=== PATIENT | male | born 1975 | race Caucasian/White ===

== ENCOUNTER 2020-04-29 17:58 | Emergency (ER) | payer MEDICAID, OTHER ==
[~2020-04-29] VITALS: Ht 182.9 cm; Wt 135.2 kg
[~2020-04-29 17:58] MED LIST: CLON0.5T4 PO; COG1 PO; RISP1TAB1 PO
[2020-04-29 18:00] VITALS: BP 121/80
--- NOTE | 2020-04-29 18:00 | NUR ---
PT TAKEN TO BED 6 AND PLACED ON CARDIAC MONTIOR, PULSE OX AND 2L NC.
--- NOTE | 2020-04-29 18:05 | NUR ---
44 YO M BIBA FOR C/C OF ALOC. PER REPORT PT WAS FOUND UNRESPONSIVE AT HOME BY ROOMATE, UNKNOWN HOW LONG PT WAS DOWN FOR. 1MG OF NARCAN GIVEN BY FIRE ON SCENE WITH NO IMPROVEMENT, AMMONIA ADMINISTERED IN ROUTE WHICH CAUSED PT TO SLIGHTLY OPEN EYES. PERRLA 3MM WITH SLUGGISH REACION TO LIGHT. PT UNREPONSIVE TO VERBAL STIMULUS, NOT ANSWERING QUESTIONS, REMAINS NONVERBAL. LIMITED HX PER [facility] REPORT. PT PLACED ON WIRE BORDER ASSEMBLER, PULSE OX, AND 2L NC. PT SATING 94% ON RA. BED LOCKED AND IN LOWEST POSITION. SIDE RAILS X2. MED HX: PSYCH HISTORY PER REPORT (UNSPECIFIC) RX: UNOBTAINABLE Addendum: 04/29/20 at 1843 by [email or web address] 44 YO M BIBA FOR C/C OF ALOC. PER REPORT PT WAS FOUND UNRESPONSIVE AT HOME BY ROOMATE, UNKNOWN HOW LONG PT WAS DOWN FOR. 1MG OF NARCAN GIVEN BY FIRE ON SCENE WITH NO IMPROVEMENT, AMMONIA ADMINISTERED IN ROUTE WHICH CAUSED PT TO SLIGHTLY OPEN EYES. PERRLA 2MM WITH BRISK REACTION TO LIGHT. PT UNREPONSIVE TO VERBAL STIMULUS, NOT ANSWERING QUESTIONS, REMAINS NONVERBAL. LIMITED HX PER [facility] REPORT. PT PLACED ON WIRE BORDER ASSEMBLER, PULSE OX, AND 2L NC. PT SATING 94% ON RA. BED LOCKED AND IN LOWEST POSITION. SIDE RAILS X2. MED HX: PSYCH HISTORY PER REPORT (UNSPECIFIC) RX: UNOBTAINABLE
--- NOTE | 2020-04-29 18:15 | NUR ---
LAB AT BEDSIDE, CANDICE SWAB COLLECTED AND GIVEN TO LAB
--- NOTE | 2020-04-29 18:15 | NUR ---
EKG AT BEDSIDE
--- NOTE | 2020-04-29 18:30 | NUR ---
# 15 FR STRAIGHT Urinary catheter inserted utilizing sterile technique. Immediate return of 150 ml YELLOW CLEAR urine noted. Urine sample collected and sent to lab. Pt tolerated procedure WELL. UA GIVEN TO BIG DATA PLATFORM ARCHITECT
[2020-04-29 18:33] LABS: BASOPHILS % (AUTO) 0.4 % (0.0-2.0); EOSINOPHILS % (AUTO) 0.7 % (0.0-4.0); HEMATOCRIT 46.5 % (36-52); HEMOGLOBIN 15.6 g/dL (12.0-18.0); LYMPHOCYTES # (AUTO) 0.8 K/uL (2.0-11.5); LYMPHOCYTES % (AUTO) 10.5 % (20.5-51.1); MEAN CORPUSCULAR HEMOGLOBIN 29 pg (27-31); MEAN CORPUSCULAR HGB CONC 34 g/dL (33-37); MEAN CORPUSCULAR VOLUME 87.7 fL (80-94); MONOCYTES # (AUTO) 0.4 K/uL (0.8-1.0); MONOCYTES % (AUTO) 5.6 % (1.7-9.3); NEUTROPHILS # (AUTO) 5.9 K/uL (1.8-7.7); NEUTROPHILS % (AUTO) 82.8 % (42.2-75.2); PLATELET COUNT (AUTO) 265 K/uL (140-450); RED CELL DISTRIBUTION WIDTH 14.1 % (11.6-13.7); WHITE BLOOD COUNT (AUTO) 7.2 K/uL (4.8-10.8)
--- NOTE | 2020-04-29 18:36 | NUR ---
CALLED RAD TO LET THEM KNOW PT IS READY FOR CT/XRAY
--- NOTE | 2020-04-29 18:40 | NUR ---
PT TAKEN TO CT VIA HANS
[2020-04-29 18:45] LABS: ALBUMIN 3.4 g/dL (3.4-5.0); ANION GAP 13.4 (8-16); ASPARTATE AMINOTRANSFERASE 18 U/L (15-37); CARBON DIOXIDE 24.4 mmol/L (21-32); CHLORIDE 104 mmol/L (98-107); CREATININE 1.2 mg/dL (0.6-1.3); GFR ARICAN-AMERICAN 85 mL/min (>90); GLUCOSE 195 mg/dL (74-106); POTASSIUM 3.8 mmol/L (3.5-5.1); SODIUM SERUM 138 mmol/L (136-145); TOTAL BILIRUBIN 0.3 mg/dL (0.0-1.0); UREA NITROGEN, BLOOD 15 mg/dL (7-18)
[2020-04-29 18:48] LABS: ACETAMINOPHEN < 0.5 ug/ml (10-30); SALICYLATE < 2.8 mg/dL (2.8-20.0)
--- NOTE | 2020-04-29 19:00 | NUR ---
PT RETURNED FROM CT, A&O X4 AT THIS TIME. PT DENIES SI AND STATES HE TOOK RISPERIDONE, BENZTROPINE, KLONOPIN OF UNKNOWN MG
--- NOTE | 2020-04-29 19:11 | NUR ---
REPORT GIVEN TO IVANA TORREZ. TRANSFER OF CARE AT THIS TIME.
--- NOTE | 2020-04-29 19:12 | NUR ---
REPORT RECEIVED FROM IVANA STRICKLAND FOR CONTINUATION OF CARE.
[2020-04-29] MEDS ORDERED: NACL 0.9% 1,000 ML IV ONE ×2 (19:25→19:55)
[2020-04-29 19:32] LABS: APPEARANCE,URINE CLEAR (CLEAR); BILIRUBIN,URINE NEGATIVE (NEGATIVE); BLOOD, URINE NEGATIVE (NEGATIVE); COLOR,URINE YELLOW (YELLOW); LEUKOCYTE ESTERASE ,URINE NEGATIVE (NEGATIVE); NITRITE, URINE NEGATIVE (NEGATIVE); UGLUCOSE NEGATIVE (NEGATIVE)
[2020-04-29 19:53] LABS: BARBITURATE, URINE NEGATIVE ng/ml (NEG <=200); BENZODIAZEPINE, URINE NEGATIVE ng/mL (NEG <=200); CANNABINOID, URINE NEGATIVE ng/mL (NEG <=50); COCAINE, URINE NEGATIVE ng/mL (NEG <=300); OPIATE, URINE NEGATIVE ng/mL (NEG <=2000); PHENCYCLIDINE SCREEN,URINE NEGATIVE ng/mL (NEG <=25)
--- NOTE | 2020-04-29 20:04 | NUR ---
CALLED SECURITY TO SEE IF WE HAVE ANY SHIRTS FOR PT AT THIS TIME.
--- NOTE | 2020-04-29 21:24 | NUR ---
SPOKE W/ PT FATHER , HE WILL PLANT TECHNICAL SPECIALIST PT FROM ER LOBBY.
--- NOTE | 2020-04-29 21:25 | NUR ---
IV removed, catheter intact and site benign. Applied folded 4x4 gauze and tape to stop bleeding.
[2020-04-29 21:31] VITALS: BP 143/94
--- NOTE | 2020-04-29 21:31 | NUR ---
Patient discharged with v/s stable. Written and verbal after care instructions given and explained. Patient verbalized understanding. Ambulatory with steady gait. All questions addressed prior to discharge. Advised to follow up with PMD.
== END 2020-04-29 21:31 | disposition home or self-care (01) ==
LOC: MED 17:58
DX: R41.0 Disorientation, unspecified (principal); F17.210 Nicotine dependence, cigarettes, uncomplicated; F20.9 Schizophrenia, unspecified; Z71.6 Tobacco abuse counseling; Z79.899 Other long term (current) drug therapy; Z20.828 Contact with and (suspected) exposure to other viral communicable diseases
CPT/HCPCS: 36415; 70450; 71045; 80053; 80305; 81003; 84484; 85025; 87426; 93005; 96360; 99285; G0480; G0482; J7030

== ENCOUNTER 2020-10-15 16:34 | Observation (INO) | payer OTHER, SELFPAY ==
[~2020-10-15] VITALS: Ht 188 cm; Wt 158.8 kg
[2020-10-15 16:40] VITALS: BP 116/86
[2020-10-15 17:21] LABS: BASOPHILS % (AUTO) 0.3 % (0.0-2.0); EOSINOPHILS % (AUTO) 0.3 % (0.0-4.0); HEMATOCRIT 46.3 % (36-52); HEMOGLOBIN 15.5 g/dL (12.0-18.0); LYMPHOCYTES # (AUTO) 1.4 K/uL (2.0-11.5); LYMPHOCYTES % (AUTO) 17.6 % (20.5-51.1); MEAN CORPUSCULAR HEMOGLOBIN 29 pg (27-31); MEAN CORPUSCULAR HGB CONC 34 g/dL (33-37); MEAN CORPUSCULAR VOLUME 87.8 fL (80-94); MONOCYTES # (AUTO) 0.3 K/uL (0.8-1.0); MONOCYTES % (AUTO) 4.4 % (1.7-9.3); NEUTROPHILS # (AUTO) 6.1 K/uL (1.8-7.7); NEUTROPHILS % (AUTO) 77.4 % (42.2-75.2); PLATELET COUNT (AUTO) 280 K/uL (140-450); RED BLOOD CELL COUNT(AUTO) 5.27 MIL/uL (4.20-6.10); RED CELL DISTRIBUTION WIDTH 13.8 % (11.6-13.7); WHITE BLOOD COUNT (AUTO) 7.8 K/uL (4.8-10.8)
[2020-10-15] MEDS ORDERED: HALOPERIDOL IM 5 MG/ML VIAL IM ONE (17:25)
[2020-10-15 17:37] LABS: ALBUMIN 3.6 g/dL (3.4-5.0); ASPARTATE AMINOTRANSFERASE 15 U/L (15-37); BILIRUBIN,DIRECT 0.1 mg/dL (0.0-0.3); TOTAL BILIRUBIN 0.2 mg/dL (0.0-1.0)
[2020-10-15 17:39] LABS: ACETAMINOPHEN < 0.5 ug/ml (10-30); SALICYLATE < 2.8 mg/dL (2.8-20.0)
[2020-10-15] MEDS ORDERED: LORazepam 2 MG/ML VIAL ONE (17:39)
[2020-10-15] MEDS ORDERED: LORazepam 2 MG/ML VIAL IVP ONE (17:40)
[2020-10-15 17:48] LABS: ANION GAP 14.6 (8-16); CARBON DIOXIDE 23.3 mmol/L (21-32); POTASSIUM 3.9 mmol/L (3.5-5.1)
[2020-10-15] MEDS ORDERED: ONDANSETRON 4 MG/2 ML VIAL IVP PRN (18:35)
[2020-10-15] MEDS ORDERED: ACETAMINOPHEN 325 MG TAB PO PRN (18:35)
[2020-10-15] MEDS ORDERED: LORazepam 2 MG/ML VIAL IVP PRN (18:35)
[2020-10-15 19:27] LABS: APPEARANCE,URINE CLEAR (CLEAR); BILIRUBIN,URINE NEGATIVE (NEGATIVE); BLOOD, URINE NEGATIVE (NEGATIVE); COLOR,URINE YELLOW (YELLOW); LEUKOCYTE ESTERASE ,URINE NEGATIVE (NEGATIVE); NITRITE, URINE NEGATIVE (NEGATIVE); PH,URINE 5.5 (5.0-9.0); UGLUCOSE NEGATIVE (NEGATIVE)
[2020-10-15 19:55] LABS: BARBITURATE, URINE NEGATIVE ng/ml (NEG <=200); BENZODIAZEPINE, URINE NEGATIVE ng/mL (NEG <=200); CANNABINOID, URINE NEGATIVE ng/mL (NEG <=50); COCAINE, URINE NEGATIVE ng/mL (NEG <=300); OPIATE, URINE NEGATIVE ng/mL (NEG <=2000); PHENCYCLIDINE SCREEN,URINE NEGATIVE ng/mL (NEG <=25)
[2020-10-15 21:20] VITALS: BP 113/76
[2020-10-16 04:00] VITALS: BP 113/81
[2020-10-16 06:36] LABS: BASOPHILS % (AUTO) 0.3 % (0.0-2.0); EOSINOPHILS # (AUTO) 0.1 K/uL (0-0.4); EOSINOPHILS % (AUTO) 1.1 % (0.0-4.0); HEMOGLOBIN 15.2 g/dL (12.0-18.0); LYMPHOCYTES # (AUTO) 2.5 K/uL (2.0-11.5); LYMPHOCYTES % (AUTO) 39.3 % (20.5-51.1); MEAN CORPUSCULAR HEMOGLOBIN 29 pg (27-31); MEAN CORPUSCULAR HGB CONC 33 g/dL (33-37); MEAN CORPUSCULAR VOLUME 88.8 fL (80-94); MONOCYTES # (AUTO) 0.5 K/uL (0.8-1.0); MONOCYTES % (AUTO) 7.5 % (1.7-9.3); NEUTROPHILS # (AUTO) 3.3 K/uL (1.8-7.7); NEUTROPHILS % (AUTO) 51.8 % (42.2-75.2); PLATELET COUNT (AUTO) 254 K/uL (140-450); RED BLOOD CELL COUNT(AUTO) 5.18 MIL/uL (4.20-6.10); RED CELL DISTRIBUTION WIDTH 13.9 % (11.6-13.7); WHITE BLOOD COUNT (AUTO) 6.4 K/uL (4.8-10.8)
[2020-10-16 06:53] LABS: ALBUMIN 3.3 g/dL (3.4-5.0); ANION GAP 10.5 (8-16); CARBON DIOXIDE 26.7 mmol/L (21-32); MAGNESIUM 2.1 mg/dL (1.8-2.4); PHOSPHORUS 3.3 mg/dL (2.5-4.9); POTASSIUM 4.2 mmol/L (3.5-5.1); TOTAL BILIRUBIN 0.2 mg/dL (0.0-1.0)
[2020-10-16 08:00] VITALS: BP 125/79
[2020-10-16] MEDS ORDERED: ENOXAPARIN 40 MG/0.4 ML SYR SUBQ SCH (09:00)
[2020-10-16 14:33] VITALS: BP 125/79
[2020-10-16] MEDS ORDERED: risperiDONE 1 MG TAB PO SCH (21:00)
[2020-10-16] MEDS ORDERED: BENZTROPINE 1 MG TAB PO SCH (21:00)
[2020-10-16] MEDS ORDERED: clonazePAM 0.5 MG TAB PO SCH (21:00)
== END 2020-10-16 15:30 | disposition home or self-care (01) ==
LOC: MED 16:34 → MTU 18:56
PROVIDERS: ADMIT Hospitalist; ATTEND Hospitalist
DX: F23 Brief psychotic disorder (principal); Z20.822 Contact with and (suspected) exposure to COVID-19; Z79.899 Other long term (current) drug therapy
CPT/HCPCS: 36415; 70450; 71045; 80048; 80053; 80076; 80305; 81003; 82140; 83735; 83930; 84100; 84484; 85025; 87040; 87081; 87086; 87426; 96372; 96374; 99291; G0378; G0482; J1630; J1650; J2060; G0480

== ENCOUNTER 2021-03-10 19:19 | Observation (INO) | payer OTHER, SELFPAY ==
[~2021-03-10] VITALS: Ht 185.4 cm; Wt 106.6 kg
[2021-03-10 19:28] VITALS: BP 145/87
[2021-03-10] MEDS ORDERED: HALOPERIDOL IM 5 MG/ML VIAL IM ONE (20:05)
--- NOTE | 2021-03-10 20:11 | NUR ---
BIBA INTO ED BED 3, ER MD AT BEDSIDE. PATIENT IS NON COOPERATIVE VERBALLY BUT UNDERSTANDS COMMANDS. PATIENT TAKES OFF PULSE OX AND CARDIAC MONIOTR AND DOESNT ALLOW FOR PROPER VITALS PER EMS PATIENT IS CONFUSED AND FATHER CALLED EMS. PMHX SCHIZO, UNSURE IF COMPLIANT WITH MEDICATIONS. PER FATHER PATIENT GETS CIGARRETES FROM A MAN IN THE [facility] AND IS UNSURE IF THEY ARE DRUGS. CURRENTLY NON COOPERATIVE WITH ASSESSMENT. LAB AT BEDSIDE ABLE TO GET BLOOD
[2021-03-10 20:18] LABS: BASOPHILS % (AUTO) 0.2 % (0.0-2.0); EOSINOPHILS % (AUTO) 0.3 % (0.0-4.0); HEMATOCRIT 47.9 % (36-52); LYMPHOCYTES # (AUTO) 2.3 K/uL (2.0-11.5); MEAN CORPUSCULAR HEMOGLOBIN 30 pg (27-31); MEAN CORPUSCULAR HGB CONC 33 g/dL (33-37); MEAN CORPUSCULAR VOLUME 88.4 fL (80-94); MONOCYTES # (AUTO) 0.5 K/uL (0.8-1.0); MONOCYTES % (AUTO) 5.2 % (1.7-9.3); NEUTROPHILS # (AUTO) 6.6 K/uL (1.8-7.7); NEUTROPHILS % (AUTO) 70.3 % (42.2-75.2); PLATELET COUNT (AUTO) 276 K/uL (140-450); RED BLOOD CELL COUNT(AUTO) 5.42 MIL/uL (4.20-6.10); RED CELL DISTRIBUTION WIDTH 14.5 % (11.6-13.7); WHITE BLOOD COUNT (AUTO) 9.4 K/uL (4.8-10.8)
[2021-03-10 20:29] LABS: ALBUMIN 3.5 g/dL (3.4-5.0); ASPARTATE AMINOTRANSFERASE 17 U/L (15-37); CARBON DIOXIDE 23.6 mmol/L (21-32); CHLORIDE 105 mmol/L (98-107); GFR ARICAN-AMERICAN 104 mL/min (>90); GLUCOSE 118 mg/dL (74-106); POTASSIUM 3.6 mmol/L (3.5-5.1); SALICYLATE 3.2 mg/dL (2.8-20.0); SODIUM SERUM 137 mmol/L (136-145); TOTAL BILIRUBIN 0.2 mg/dL (0.0-1.0); UREA NITROGEN, BLOOD 20 mg/dL (7-18)
[2021-03-10 20:30] LABS: ACETAMINOPHEN < 0.5 ug/ml (10-30)
--- NOTE | 2021-03-10 21:42 | NUR ---
PATIENT IS ALERT AND ORIENTED AT THIS TIME. AT TIME OF CT HE HAD CONVERSATION WITH RADIOLOGY STAFF AND IS NOT ALTERED. CHOOSING NOT TO TALK TO ER MD OR NURSE BUT OTHERWISE COOPERATIVE
[2021-03-10 21:47] LABS: APPEARANCE,URINE CLEAR (CLEAR); BILIRUBIN,URINE NEGATIVE (NEGATIVE); BLOOD, URINE NEGATIVE (NEGATIVE); COLOR,URINE YELLOW (YELLOW); LEUKOCYTE ESTERASE ,URINE NEGATIVE (NEGATIVE); NITRITE, URINE NEGATIVE (NEGATIVE); UGLUCOSE NEGATIVE (NEGATIVE)
[2021-03-10 22:01] LABS: BARBITURATE, URINE NEGATIVE ng/ml (NEG <=200); BENZODIAZEPINE, URINE NEGATIVE ng/mL (NEG <=200); CANNABINOID, URINE NEGATIVE ng/mL (NEG <=50); COCAINE, URINE NEGATIVE ng/mL (NEG <=300); OPIATE, URINE NEGATIVE ng/mL (NEG <=2000); PHENCYCLIDINE SCREEN,URINE NEGATIVE ng/mL (NEG <=25)
--- NOTE | 2021-03-11 00:01 | NUR ---
0002- [facility] CALLED FOR PSYCH CONSULT AND GIVEN APPROXIMATE ETA OF JOCKEY'S AGENT
--- NOTE | 2021-03-11 00:05 | NUR ---
0005 - FAX SENT TO [facility] FOR PT FACESHEET
[2021-03-11] MEDS ORDERED: HALOPERIDOL IM 5 MG/ML VIAL IM SCH (01:30)
--- NOTE | 2021-03-11 01:31 | NUR ---
pATIENT BECAME INCREASINGLY UNCOOPERATIVE AND GETTING OUT OF BED AND CRAWLING ON THE FLOOR . ER MD PLACED ORDER FOR RESTRAINTS AND 4 POINT RESTRAINTS INITIATED. PATIENT ON COUNTER WAITER FOR MONITORING
[2021-03-11] MEDS ORDERED: HALOPERIDOL IM 5 MG/ML VIAL ONE (01:48)
[2021-03-11] MEDS ORDERED: HALOPERIDOL IM 5 MG/ML VIAL IM ONE (01:50)
[2021-03-11] MEDS ORDERED: MIDAZOLAM 5 MG/1 ML VIAL ONE (04:09)
[2021-03-11] MEDS ORDERED: MIDAZOLAM 5 MG/5 ML VIAL IM ONE (04:10)
--- NOTE | 2021-03-11 04:10 | NUR ---
PATIENT AWAKE AT THIS TIME AND SCREAMING AND SPITTING WITH RESTRAINTS IN PLACE.
--- NOTE | 2021-03-11 04:59 | NUR ---
PATIENT IS AWAKE AND MANAGED TO UNDO UPPER EXTREMITY RESTRAINTS AT THIS TIME.
--- NOTE | 2021-03-11 05:05 | NUR ---
PATIENT ALERT AND ORIENTED AT THIS TIME. REMEMBERS MAKING SOUNDS AND NOISE BUT DOES NOT REMEMBER CRAWLING ON THE FLOOR OR SCREAMING. AT THIS TIME REMAINS WITH LOWER EXTREMITIES RESTRAINED AND UPPER EXTREMTIES FREED
--- NOTE | 2021-03-11 06:53 | NUR ---
ROSINAID EXAMS WALKED TO LAB AT THIS TIME
--- NOTE | 2021-03-11 07:02 | NUR ---
pt moved to er bed 6
--- NOTE | 2021-03-11 07:12 | NUR ---
RECEIVED REPORT FROM IVANA QUIÑONES TRAVEL NURSE. TRANSFER OF CARE AT THIS TIME.
--- NOTE | 2021-03-11 07:14 | NUR ---
PT SLEEPING ON RIGHT SIDE, NO RESTRAINTS, HOB FLAT, WILL CONTINUE TO MONITOR.
--- NOTE | 2021-03-11 09:13 | NUR ---
PT PROVIDED WITH BREAKFAST TRAY, HOB ELEVATED. WILL CONTINUE TO MONITOR.
--- NOTE | 2021-03-11 09:52 | NUR ---
PT BECOMING INCREASINGLY AGITATED, MAKING GROWLING NOISES, PT CAUGHT PLACING HEAD BETWEEN IV POLE AND BED FRAME. MD MADE AWARE, GEODON 20MG VERBAL ORDER TO BE GIVEN IM. PER MD ORDERS EQUIPMENT TO BE REMOVED FROM PT ROOM FOR SAFETY. WILL CONTINUE TO MONITOR.
[2021-03-11] MEDS ORDERED: ZIPRASIDONE MESYLATE 20 MG/ML VIAL IM ONE ×2 (10:07→10:10)
[2021-03-11] MEDS ORDERED: WATER STERILE 10 ML MC ONE (10:08)
--- NOTE | 2021-03-11 10:34 | NUR ---
PT ADMITTED BY DR. GILLESPIE, MED SURG HOLD IN ER BED 6.
[2021-03-11] MEDS ORDERED: POTASSIUM CHLORIDE 10 MEQ TABER PO PRN (10:35)
[2021-03-11] MEDS ORDERED: ZOLPIDEM 5 MG TAB PO PRN (10:35)
[2021-03-11] MEDS ORDERED: ONDANSETRON 4 MG/2 ML VIAL IVP PRN (10:35)
[2021-03-11] MEDS ORDERED: KCL 20 MEQ/WATER INJ PREMIX 200 ML IV PRN (10:35)
[2021-03-11] MEDS ORDERED: ACETAMINOPHEN 325 MG TAB PO PRN (10:35)
[2021-03-11] MEDS ORDERED: MAG SULF 2000 MG/WATER PREMIX 50 ML IV PRN (10:35)
[2021-03-11] MEDS ORDERED: MAGNESIUM OXIDE 400 MG TAB PO PRN (10:35)
--- NOTE | 2021-03-11 11:02 | NUR ---
CALLED MANAGER SALES AND MARKETING JOWLE FOR MED/SURG ADMIT, STS " WILL CALL BACK WHEN I HAS A BED ' NO ETA GIVEN.
--- NOTE | 2021-03-11 12:07 | NUR ---
PT UP FROM BED, CAUGHT RUNNING TO ER BED 9, ATTEMPTING TO ATTACK EMPLOYEE. BOWLING BALL GRADER AND MARKER PULLED FROM WALL AND SLAMMED ON FLOOR. MD MADE AWARE, 4 POINT RESTRAINTS ORDERED. PT EXTREMELY AGITATED, GROWLING, SECURITY PAGED. PT PLACED IN 4 POINT RESTRAINTS. PT DOES NOT COMPREHENDS CRITERIA FOR RELEASE, DOCUMENTATION IN CHART.
[2021-03-11] MEDS ORDERED: LORazepam 2 MG/ML VIAL IVP ONE (12:45)
[2021-03-11] MEDS ORDERED: HALOPERIDOL IM 5 MG/ML VIAL IM PRN (12:55)
[2021-03-11] MEDS ORDERED: LORazepam 2 MG/ML VIAL IVP PRN (12:55)
[2021-03-11] MEDS ORDERED: LORazepam 2 MG/ML VIAL IM ONE (13:15)
--- NOTE | 2021-03-11 14:20 | NUR ---
PT RESTING, ASKING FOR WATER, MD MADE AWARE PROVIDED. VSS, WILL CONTINUE TO MONITOR.
--- NOTE | 2021-03-11 16:00 | NUR ---
PT REMOVED FROM 4 POINT RESTRAINTS. PT COMPREHENDS CRITERIA FOR RELEASE, DOCUMENTATION IN CHART.
--- NOTE | 2021-03-11 16:15 | NUR ---
PT RESTING SUPINE, VSS, CALM AND COOPERATIVE. WILL CONTINUE TO MONITOR.
--- NOTE | 2021-03-11 18:35 | NUR ---
PT USING URINAL AT BEDSIDE, EMPTIED 800CC OF CARMINE COLOR URINE.
--- NOTE | 2021-03-11 18:51 | NUR ---
PT ON KNEES IN BED, FIXING SHEETS, CALM AND COOPERATIVE. WILL CONTINUE TO MONITOR.
--- NOTE | 2021-03-11 19:29 | NUR ---
GAVE REPORT TO TRAVEL QUIÑONES RN. TRANSFER OF CARE AT THIS TIME.
--- NOTE | 2021-03-11 21:25 | NUR ---
RECEIVED REPORT FROM ER NURSE; PT TRANSPORTED VIA GURNEY. ABLE TO SLIDE OVER TO BED, FOLLOWING SIMPLE COMMANDS. UNABLE TO RESPOND TO ASSESSMENT. PT DOES NOT WANT TO HURT ONESELF. DENIES ACUTE PAIN, CP/SOB. ON ROOM AIR 98%, AFEBRILE. ABD SOFT NON DISTENDED, URINAL @ BEDSIDE. IV L HAND 20 G PATENT INTACT. 1:1 SITTER PER MD ORDER. SKIN INTACT BED LOCKED IN LOWEST POSITION. SAFETY PRECAUTIONS IN PLACE.
--- NOTE | 2021-03-11 22:54 | NUR ---
EYES CLOSED; AROUSABLE. NO ACUTE DISTRESS NOTED.
--- NOTE | 2021-03-12 00:30 | NUR ---
PT HAS EYES CLOSED; AROUSABLE. NO S/S OF DISTRESS NOTED
--- NOTE | 2021-03-12 03:00 | NUR ---
PT AWAKE SITTING UP BED, REQUESTING SANDWICH/DRINK. NO OTHER S/S OF DISTRESS NOTED.
[2021-03-12 04:00] VITALS: BP 145/89
--- NOTE | 2021-03-12 05:57 | NUR ---
PT ASLEEP; AROUSABLE. NO ACUTE DISTRESS NOTED.
[2021-03-12 06:41] LABS: BASOPHILS % (AUTO) 0.2 % (0.0-2.0); EOSINOPHILS # (AUTO) 0.1 K/uL (0-0.4); EOSINOPHILS % (AUTO) 0.9 % (0.0-4.0); HEMATOCRIT 49.6 % (36-52); HEMOGLOBIN 16.4 g/dL (12.0-18.0); LYMPHOCYTES # (AUTO) 2.6 K/uL (2.0-11.5); LYMPHOCYTES % (AUTO) 32.5 % (20.5-51.1); MEAN CORPUSCULAR HEMOGLOBIN 29 pg (27-31); MEAN CORPUSCULAR HGB CONC 33 g/dL (33-37); MEAN CORPUSCULAR VOLUME 88.9 fL (80-94); MONOCYTES # (AUTO) 0.5 K/uL (0.8-1.0); MONOCYTES % (AUTO) 6.9 % (1.7-9.3); NEUTROPHILS # (AUTO) 4.7 K/uL (1.8-7.7); NEUTROPHILS % (AUTO) 59.5 % (42.2-75.2); PLATELET COUNT (AUTO) 267 K/uL (140-450); RED BLOOD CELL COUNT(AUTO) 5.57 MIL/uL (4.20-6.10); RED CELL DISTRIBUTION WIDTH 14.6 % (11.6-13.7); WHITE BLOOD COUNT (AUTO) 7.8 K/uL (4.8-10.8)
[2021-03-12 06:54] LABS: CHOL/HDL RATIO 4.5 (1-4.5)
[2021-03-12 06:55] LABS: ANION GAP 16.4 (8-16); CARBON DIOXIDE 24.2 mmol/L (21-32); CREATININE 1.1 mg/dL (0.6-1.3); POTASSIUM 3.6 mmol/L (3.5-5.1)
--- NOTE | 2021-03-12 07:19 | NUR ---
REPORT GIVEN TO DAY SHIFT FOR CONTINUITY OF CARE.
--- NOTE | 2021-03-12 07:20 | NUR ---
RECEIVED REPORT FROM CHECK AND TRANSFER BEADER. PT AWAKE IN BED. AOX4, ABLE TO MAKE NEEDS KNOWN. WITH EPISODES OF RESTLESSNESS AND PACING AROUND THE ROOM. NO C/O PAIN, NO RESPIRATORY DISTRESS ON ROOM AIR. AMBULATORY, BOWEL AND BLADDER CONTINENT. WITH IV 20G ON LH, ON SALINE LOCK. SKIN INTACT. COVID PCR PENDING. ISOLATION PRECAUTION OBSERVED. CALL LIGHT WITHIN REACH. WILL CONTINUE TO MONITOR
[2021-03-12 08:00] VITALS: BP 145/84
--- NOTE | 2021-03-12 08:30 | NUR ---
may continue home meds per Dr Gallardo
--- NOTE | 2021-03-12 09:05 | NUR ---
DUE PO MEDS GIVEN TOLERATED WELL
[2021-03-12] MEDS: BENZTROPINE 1 MG TAB PO SCH ×2 (09:09→21:51)
[2021-03-12] MEDS: clonazePAM 0.5 MG TAB PO SCH ×2 (09:09→21:50)
[2021-03-12] MEDS: risperiDONE 1 MG TAB PO SCH ×2 (09:09→21:49)
[2021-03-12] MEDS: ENOXAPARIN 40 MG/0.4 ML SYR SUBQ SCH (09:10)
--- NOTE | 2021-03-12 12:14 | NUR ---
TRANSFERRED PT TO TELE ROOM 109A. GAVE REPORT TO FRANKIE HEATH
--- NOTE | 2021-03-12 12:15 | NUR ---
RECEIVED PATIENT FROM IVANA SKAGGS FOR CONTINUITY OF CARE. PT IS STABLE. NO DISTRESS NOTED. WILL CONTINUE TO MONITOR.
--- NOTE | 2021-03-12 15:09 | NUR ---
DR. GILLESPIE AT PATIENT'S BEDSIDE DISCUSSING PLAN OF CARE.
--- NOTE | 2021-03-12 17:15 | NUR ---
PATIENT REMOVED IV CATH. INSISTED PLACING A NEW IV AND PATIENT REFUSED. NOTIFIED MD AND IS AWARE OF THE SITUATION.
--- NOTE | 2021-03-12 19:23 | NUR ---
ENDORSED TO MANAGER INSTRUMENTATION NURSE FOR CONTINUITY OF CARE. PT IS STABLE.
[2021-03-12 20:00] VITALS: BP 147/82
--- NOTE | 2021-03-12 23:57 | NUR ---
Assumed care. A/O x 4. Denies pain at this time. In no acute distress respiratory or otherwise. Psych consult Dr Munoz did talk to him. She willbe making her recommendations. Will continue to monitor.
[2021-03-13 04:00] VITALS: BP 114/81
[2021-03-13 06:54] LABS: BASOPHILS % (AUTO) 0.2 % (0.0-2.0); EOSINOPHILS # (AUTO) 0.1 K/uL (0-0.4); EOSINOPHILS % (AUTO) 1.4 % (0.0-4.0); HEMATOCRIT 43.5 % (36-52); HEMOGLOBIN 14.5 g/dL (12.0-18.0); LYMPHOCYTES # (AUTO) 2.5 K/uL (2.0-11.5); LYMPHOCYTES % (AUTO) 42.6 % (20.5-51.1); MEAN CORPUSCULAR HEMOGLOBIN 30 pg (27-31); MEAN CORPUSCULAR HGB CONC 33 g/dL (33-37); MEAN CORPUSCULAR VOLUME 88.8 fL (80-94); MONOCYTES # (AUTO) 0.5 K/uL (0.8-1.0); MONOCYTES % (AUTO) 8.7 % (1.7-9.3); NEUTROPHILS # (AUTO) 2.8 K/uL (1.8-7.7); NEUTROPHILS % (AUTO) 47.1 % (42.2-75.2); PLATELET COUNT (AUTO) 251 K/uL (140-450); RED CELL DISTRIBUTION WIDTH 14.2 % (11.6-13.7); WHITE BLOOD COUNT (AUTO) 5.9 K/uL (4.8-10.8)
[2021-03-13 07:30] LABS: ANION GAP 15.9 (8-16); CARBON DIOXIDE 23.2 mmol/L (21-32); POTASSIUM 4.1 mmol/L (3.5-5.1)
--- NOTE | 2021-03-13 08:02 | NUR ---
RECEIVED REPORT FROM AIR PUMPER. PT AWAKE IN BED. AOX4, ABLE TO MAKE NEEDS KNOWN. WITH EPISODES OF RESTLESSNESS AND PACING AROUND THE ROOM. NO C/O PAIN, NO RESPIRATORY DISTRESS ON ROOM AIR. AMBULATORY, BOWEL AND BLADDER CONTINENT. PATIENT HAS NO IV, REFUSE TO INSERT ONE. SKIN INTACT. COVID PCR PENDING. ISOLATION PRECAUTION OBSERVED. CALL LIGHT WITHIN REACH. ALL SAFETY MEASURES ON PLACE, POC DISCUSSED.
--- NOTE | 2021-03-13 08:05 | NUR ---
Has remained calm the whole night. Dr. Munoz did talk to him. He is looking forward to being discharged home. Care has been endorsed to Gregorio HEATH.
[2021-03-13] MEDS: risperiDONE 1 MG TAB PO SCH (08:44)
[2021-03-13] MEDS: BENZTROPINE 1 MG TAB PO SCH (08:46)
[2021-03-13] MEDS: ENOXAPARIN 40 MG/0.4 ML SYR SUBQ SCH (08:46)
[2021-03-13] MEDS: clonazePAM 0.5 MG TAB PO SCH (08:46)
--- NOTE | 2021-03-13 08:58 | NUR ---
PT ON BED NO COMPLAINS. GOT MORNING MEDICATION TOLERATED WELL, EATING BREAKFAST, ALL SAFETY MEASURES ON PLACE CALS LIGHT WITHIN REACH
--- NOTE | 2021-03-13 09:29 | NUR ---
PATIENT HAS BEEN SCREENED AND CATEGORIZED LOW NUTRITION RISK. PATIENT WILL BE SEEN WITHIN 7 DAYS OF ADMISSION. 03/18/[address]
--- NOTE | 2021-03-13 11:04 | NUR ---
PT ON BED NO COMPLAINS. PLAN TO BE DISCHARGED TODAY, ALL SAFETY MEASURES ON PLACE CALS LIGHT WITHIN REACH
[2021-03-13 12:00] VITALS: BP 108/85
--- NOTE | 2021-03-13 13:19 | NUR ---
PT ON BED NO COMPLAINS. PLAN TO BE DISCHARGED TODAY, ALL SAFETY MEASURES ON PLACE CALLS LIGHT WITHIN REACH
--- NOTE | 2021-03-13 14:46 | NUR ---
PT ON BED NO COMPLAINS. P ALL SAFETY MEASURES ON PLACE CALLS LIGHT WITHIN REACH
--- NOTE | 2021-03-13 16:30 | NUR ---
PT ON BED NO COMPLAINS. ALL SAFETY MEASURES ON PLACE CALLS LIGHT WITHIN REACH
[2021-03-13 16:43] VITALS: BP 115/81
--- NOTE | 2021-03-13 17:06 | NUR ---
DC PLANNING PATIENT IS A 45 YEAR OLD MALE ADMITTED IN THE ED ON 03/11/2021. DUE ALTERATION ON CONSCIOUSNESS. PATIENT HAS HX OF MENTAL HEALTH ISSUES. SCOURING MACHINE TENDER AND CASE MANGER MET WITH PATIENT AT BEDSIDE TO DISCUSS AND GATHER HIS COLLATERAL INFORMATION. PER PATIENT HE LIVES IN AN APARTMENT IN [place] WITH HIS FATHER. PATIENT REPORTED NOT HAVING ADVANCE DIRECTIVES AND WAS NOT INTERESTED ON GETTING INFORMATION PACKET PROVIDED BY AT THE TIME OF THE VISIT. PATIENT REPORTED NOT HAVING OR NEEDING ANY DME AT HOME. PATIENT REPORTED BEEN INDEPENDENT AND HAVING NO ISSUES GETTING OR TAKING HIS MEDICATIONS FROM THE PHARMACY NEAR HIS HOME. PATIENT STATED THAT HIS PRIMARY DOCTOR IS AT [facility]. AND HE IS ALSO IS GETTING SERVICES AT [facility] IN [place]. PATIENT REPORTED THAT HE WILL BE CALLING TO MAKE AN APPOINTMENT WITH HIS PSYCHIATRIST SOON HE IS DISCHARGE FROM [facility]. PATIENT REPORTED THAT HIS FATHER WILL PICK HIM UP AT AND TAKE HIM HOME AFTER DC FROM [facility].
[2021-03-13 17:51] VITALS: BP 115/81
--- NOTE | 2021-03-13 18:30 | NUR ---
PT FATHER WAS CALLED AND COME TO RUNNING INSTRUCTOR THE PT, PT RECEIVE DISCHARGE PACKET AND DISCHARGE EDUCATION, PT HAS ALL BELONGING, ID BAND REMOVED, PT HAS NO IV, PT STABLE, WALKED TO THE FRONT [facility]. Addendum: 03/13/21 at 2000 by Magnus Adair RN RN SECURITY BRING PT BELONGING, BELONGINGS GIVEN TO THE PT
== END 2021-03-13 18:50 | disposition home or self-care (01) ==
LOC: MED 19:19 → MTU 03-11 10:34 → MIC 03-11 17:41 → MTU 03-12 11:40
PROVIDERS: ADMIT Internal Medicine; ATTEND Internal Medicine
DX: G93.40 Encephalopathy, unspecified (principal); Z20.822 Contact with and (suspected) exposure to COVID-19; F20.9 Schizophrenia, unspecified; I10 Essential (primary) hypertension; Z79.899 Other long term (current) drug therapy
CPT/HCPCS: 36415; 70450; 80048; 80053; 80061; 80305; 81003; 83036; 85025; 87081; 87426; 93005; 96372; 99285; G0378; G0480; G0482; J1630; J1650; J2060; J2250; J3486; U0003

== ENCOUNTER 2022-08-24 21:42 | Emergency (ER) | payer OTHER ==
[~2022-08-24] VITALS: Ht 188 cm; Wt 127.0 kg
[~2022-08-24 21:42] MED LIST changes: +BENZ1TAB24 PO; -COG1 PO
[2022-08-24 22:05] VITALS: BP 152/98
--- NOTE | 2022-08-24 22:12 | NUR ---
PT [facility] ER BED 7
--- NOTE | 2022-08-24 22:18 | NUR ---
LUIS ANGULO ASSESSING PT.
--- NOTE | 2022-08-24 22:20 | NUR ---
46 YO M BIBA FROM HOME WITH C/C OF ALTERED MENTAL STATUS X 45MINS-1HR. PER ROOMATE LAST KNOWN WELL WAS ABOUT 7-8PM. PER EMS PT WAS FOUND ON FLOOR SIDE-LYING NAKED IN A "CATATONIC STATE". PT WILL NOT ANSWER QUESTIONS, HAS A BLANK STARE. EMS STATES IF PT IS GIVEN INSTURCTION HE WILL NOT FOLLOW, BUT IF MOVEMENTS ARE INITAITED SUCH RAISE YOUR ARM, PT KEEPS IT UP. PER EMS PT'S ROOM WAS COVERED IN TRASH AND MANY COCKAROACHES AROUND. HX:SCHIZOPHRENIA PER ROOMMATE UNABLE TO OBTAIN FURTHER HX, ALLERGIES OR MEDS
[2022-08-24] MEDS ORDERED: LORazepam 2 MG/ML VIAL IVP ONE (22:30)
[2022-08-24 23:10] LABS: BASOPHILS # (AUTO) 0.1 K/uL (0.00-0.22); BASOPHILS % (AUTO) 0.7 % (0.0-2.0); EOSINOPHILS % (AUTO) 0.4 % (0.0-4.0); HEMATOCRIT 46.7 % (36-52); HEMOGLOBIN 15.6 g/dL (12.0-18.0); LYMPHOCYTES # (AUTO) 2.3 K/uL (2.0-11.5); LYMPHOCYTES % (AUTO) 22.8 % (20.5-51.1); MEAN CORPUSCULAR HEMOGLOBIN 29 pg (27-31); MEAN CORPUSCULAR HGB CONC 33 g/dL (33-37); MEAN CORPUSCULAR VOLUME 87.7 fL (80-94); MONOCYTES # (AUTO) 0.6 K/uL (0.8-1.0); MONOCYTES % (AUTO) 6.1 % (1.7-9.3); NEUTROPHILS # (AUTO) 7.2 K/uL (1.8-7.7); PLATELET COUNT (AUTO) 275 K/uL (140-450); RED BLOOD CELL COUNT(AUTO) 5.32 MIL/uL (4.20-6.10); WHITE BLOOD COUNT (AUTO) 10.3 K/uL (4.8-10.8)
[2022-08-24 23:43] LABS: ACETAMINOPHEN < 0.5 ug/ml (10-30); ALBUMIN 3.5 g/dL (3.4-5.0); ANION GAP 11.9 (8-16); ASPARTATE AMINOTRANSFERASE 18 U/L (15-37); CARBON DIOXIDE 24.7 mmol/L (21-32); CHLORIDE 106 mmol/L (98-107); CREATININE 0.9 mg/dL (0.6-1.3); GFR ARICAN-AMERICAN 117 mL/min (>90); GLUCOSE 144 mg/dL (74-106); MAGNESIUM 1.9 mg/dL (1.8-2.4); PHOSPHORUS 2.7 mg/dL (2.5-4.9); POTASSIUM 3.6 mmol/L (3.5-5.1); SALICYLATE 4.3 mg/dL (2.8-20.0); SODIUM SERUM 139 mmol/L (136-145); TOTAL BILIRUBIN 0.3 mg/dL (0.0-1.0); UREA NITROGEN, BLOOD 16 mg/dL (7-18)
[2022-08-25 02:36] LABS: APPEARANCE,URINE CLEAR (CLEAR); BILIRUBIN,URINE NEGATIVE (NEGATIVE); BLOOD, URINE NEGATIVE (NEGATIVE); COLOR,URINE YELLOW (YELLOW); LEUKOCYTE ESTERASE ,URINE NEGATIVE (NEGATIVE); NITRITE, URINE NEGATIVE (NEGATIVE); PH,URINE 7.5 (5.0-9.0); UGLUCOSE NEGATIVE (NEGATIVE)
[2022-08-25 02:48] LABS: BARBITURATE, URINE NEGATIVE ng/ml (NEG <=200); BENZODIAZEPINE, URINE POSITIVE ng/mL (NEG <=200); CANNABINOID, URINE NEGATIVE ng/mL (NEG <=50); COCAINE, URINE NEGATIVE ng/mL (NEG <=300); OPIATE, URINE NEGATIVE ng/mL (NEG <=2000); PHENCYCLIDINE SCREEN,URINE NEGATIVE ng/mL (NEG <=25)
[2022-08-25 04:17] VITALS: BP 140/98
--- NOTE | 2022-08-25 04:18 | NUR ---
Patient discharged with v/s stable. Written and verbal after care instructions given and explained. Patient verbalized understanding. Ambulatory with to home. All questions addressed prior to discharge. Advised to follow up with PMD. pt left with his belomgings.
== END 2022-08-25 04:01 | disposition home or self-care (01) ==
LOC: MED 21:42
DX: R41.82 Altered mental status, unspecified (principal); Z20.822 Contact with and (suspected) exposure to COVID-19; F20.9 Schizophrenia, unspecified; I10 Essential (primary) hypertension; Z79.899 Other long term (current) drug therapy
CPT/HCPCS: 36415; 70450; 71045; 80053; 80305; 81003; 82140; 82550; 83735; 84100; 84484; 85025; 87426; 93005; 96374; 99285; G0480; G0482; J2060; Q0092

== ENCOUNTER 2022-10-28 08:58 | Emergency (ER) | payer OTHER ==
[~2022-10-28] VITALS: Ht 182.9 cm; Wt 95.3 kg
--- NOTE | 2022-10-28 09:02 | NUR ---
PT BIBA TO BED 7
--- NOTE | 2022-10-28 09:10 | NUR ---
46YO M BIBA HOME D/T ALOC, PER EMS PT FOUND ON GROUND BY DAD THIS AM, UNKNOWN TIME, LAST WELL KNOWN YESTERDAY. DAD STATES PT IS COMPLIANT W/MEDS AND HAS HAD PREVIOUS SIMILAR EPISODES. AT ARRIVAL PT NON VERBAL, NO VISIBLE DISTRESS, ARROUSABLE TO VOICE. PT RESTLESS SHAKING LEGS, SAFETY MAINTAINED. NAD. HX: SCHIZO MEDS: BENZTROPINE NKA
[2022-10-28 09:28] VITALS: BP 110/80
--- NOTE | 2022-10-28 11:04 | NUR ---
PT IN CT
--- NOTE | 2022-10-28 11:14 | NUR ---
PT BACK FROM CT
[2022-10-28 11:15] LABS: BASOPHILS % (AUTO) 0.3 % (0.0-2.0); EOSINOPHILS % (AUTO) 0.1 % (0.0-4.0); HEMATOCRIT 45.1 % (36-52); HEMOGLOBIN 15.3 g/dL (12.0-18.0); LYMPHOCYTES # (AUTO) 1.8 K/uL (2.0-11.5); LYMPHOCYTES % (AUTO) 20.1 % (20.5-51.1); MEAN CORPUSCULAR HEMOGLOBIN 30 pg (27-31); MEAN CORPUSCULAR HGB CONC 34 g/dL (33-37); MEAN CORPUSCULAR VOLUME 87.4 fL (80-94); MONOCYTES # (AUTO) 0.5 K/uL (0.8-1.0); MONOCYTES % (AUTO) 5.3 % (1.7-9.3); NEUTROPHILS # (AUTO) 6.5 K/uL (1.8-7.7); NEUTROPHILS % (AUTO) 74.2 % (42.2-75.2); PLATELET COUNT (AUTO) 280 K/uL (140-450); RED BLOOD CELL COUNT(AUTO) 5.17 MIL/uL (4.20-6.10); WHITE BLOOD COUNT (AUTO) 8.8 K/uL (4.8-10.8)
--- NOTE | 2022-10-28 11:34 | NUR ---
MD KANG AT BEDSIDE FOR EVALUATION
[2022-10-28 11:46] LABS: ALBUMIN 3.6 g/dL (3.4-5.0); ASPARTATE AMINOTRANSFERASE 19 U/L (15-37); CARBON DIOXIDE 21.7 mmol/L (21-32); CHLORIDE 106 mmol/L (98-107); CREATININE 0.9 mg/dL (0.6-1.3); GFR ARICAN-AMERICAN 117 mL/min (>90); GLUCOSE 133 mg/dL (74-106); POTASSIUM 3.7 mmol/L (3.5-5.1); SALICYLATE 3.1 mg/dL (2.8-20.0); SODIUM SERUM 138 mmol/L (136-145); TOTAL BILIRUBIN 0.4 mg/dL (0.0-1.0); UREA NITROGEN, BLOOD 16 mg/dL (7-18)
[2022-10-28 11:53] LABS: ACETAMINOPHEN < 0.5 ug/ml (10-30)
[2022-10-28 12:05] LABS: APPEARANCE,URINE CLEAR (CLEAR); BILIRUBIN,URINE NEGATIVE (NEGATIVE); BLOOD, URINE NEGATIVE (NEGATIVE); COLOR,URINE YELLOW (YELLOW); LEUKOCYTE ESTERASE ,URINE NEGATIVE (NEGATIVE); NITRITE, URINE NEGATIVE (NEGATIVE); UGLUCOSE NEGATIVE (NEGATIVE)
[2022-10-28 12:20] LABS: BARBITURATE, URINE NEGATIVE ng/ml (NEG <=200); BENZODIAZEPINE, URINE NEGATIVE ng/mL (NEG <=200); CANNABINOID, URINE NEGATIVE ng/mL (NEG <=50); COCAINE, URINE NEGATIVE ng/mL (NEG <=300); OPIATE, URINE NEGATIVE ng/mL (NEG <=2000); PHENCYCLIDINE SCREEN,URINE NEGATIVE ng/mL (NEG <=25)
--- NOTE | 2022-10-28 13:37 | NUR ---
UNABLE TO CONTACT FATHER OR SISTER, NUMBERS ON PT DATA FILE CALLED-NUMBERS NO LONGER IN SERVICE. [place] PD CALLED FOR HOUSE CHECK AND HAVE FATHER CALL ER. PD WILL CALL BACK W/DISPO.
--- NOTE | 2022-10-28 14:17 | NUR ---
CALL RECEIVED FROM ARELI WAITE. PD SENT OUT TO [facility], NO ANSWER AT DOOR. S/W OFFICER BRENDA #[id number] Addendum: 10/28/22 at 1421 by KRISTEN LUIS CONKLIN AWARE
[2022-10-28] MEDS ORDERED: LORazepam 2 MG/ML VIAL IM ONE (16:55)
--- NOTE | 2022-10-28 17:42 | NUR ---
PT RESPONDING TO QUESTIONS, ASKED FOR URINAL, PROVIDED FATHERS NUMBER.
--- NOTE | 2022-10-28 17:46 | NUR ---
SPOKE W/DAD ETA FOR PICKUP 10MIN
--- NOTE | 2022-10-28 18:01 | NUR ---
PT AWAKE AND TALKING, NO PAIN, STATES CAN'T TALK OR MOVE WHEN HE STOPS TAKING HIS MEDS. PT STATES HE'S READY TO GO HOME.
--- NOTE | 2022-10-28 18:10 | NUR ---
PT SITTING UPRIGHT EATING, VERBALIZED HE'S UNABLE TO MOVE OR TALK UNKNOWN CAUSE.
--- NOTE | 2022-10-28 18:18 | NUR ---
CALLED PT'S DAD ETA 20 MIN
[2022-10-28 18:45] VITALS: BP 106/72
--- NOTE | 2022-10-28 18:45 | NUR ---
Patient discharged with v/s stable. Patient verbalized understanding. Ambulatory with steady gait. All questions addressed prior to discharge. Advised to follow up with PMD. MENTAL HEALTH/PSYCH RESORCES
== END 2022-10-28 18:45 | disposition home or self-care (01) ==
LOC: MED 08:58
DX: R40.1 Stupor (principal); F29 Unspecified psychosis not due to a substance or known physiological condition; F20.9 Schizophrenia, unspecified; I10 Essential (primary) hypertension; Z79.899 Other long term (current) drug therapy
CPT/HCPCS: 36415; 70450; 80053; 80305; 81003; 85025; 96372; 99285; G0480; G0482; J2060

== ENCOUNTER 2023-01-18 20:55 | Emergency (ER) | payer OTHER ==
[~2023-01-18] VITALS: Ht 185.4 cm; Wt 136.1 kg
[2023-01-18 21:16] VITALS: BP 160/93; PULSE 95; RESP 22; TEMP 97.3; O2SAT 98
[2023-01-18 21:32] LABS: BASOPHILS % (AUTO) 0.3 % (0.0-2.0); EOSINOPHILS # (AUTO) 0.1 K/uL (0-0.4); EOSINOPHILS % (AUTO) 0.7 % (0.0-4.0); HEMATOCRIT 45.6 % (36-52); HEMOGLOBIN 15.4 g/dL (12.0-18.0); LYMPHOCYTES # (AUTO) 1.8 K/uL (2.0-11.5); LYMPHOCYTES % (AUTO) 21.6 % (20.5-51.1); MEAN CORPUSCULAR HEMOGLOBIN 30 pg (27-31); MEAN CORPUSCULAR HGB CONC 34 g/dL (33-37); MEAN CORPUSCULAR VOLUME 88.6 fL (80-94); MONOCYTES # (AUTO) 0.4 K/uL (0.8-1.0); MONOCYTES % (AUTO) 5.3 % (1.7-9.3); NEUTROPHILS % (AUTO) 72.1 % (42.2-75.2); PLATELET COUNT (AUTO) 271 K/uL (140-450); RED BLOOD CELL COUNT(AUTO) 5.15 MIL/uL (4.20-6.10); RED CELL DISTRIBUTION WIDTH 14.2 % (11.6-13.7); WHITE BLOOD COUNT (AUTO) 8.3 K/uL (4.8-10.8)
[2023-01-18] MEDS ORDERED: MIDAZOLAM 2 MG/2 ML VIAL IVP ONE (21:35)
[2023-01-18 21:43] LABS: ALANINE AMINOTRANSFERASE 35 U/L (12-78); ALBUMIN 3.2 g/dL (3.4-5.0); ALCOHOL, BLOOD < 3 mg/dL (<10); ALKALINE PHOSPHATASE 65 U/L (50-136); ASPARTATE AMINOTRANSFERASE 20 U/L (15-37); CALCIUM 8.2 mg/dL (8.5-10.1); CARBON DIOXIDE 25.5 mmol/L (21-32); CHLORIDE 105 mmol/L (98-107); GFR ARICAN-AMERICAN 103 mL/min (>90); GFR NON ARICAN-AMERICAN 86 mL/min (>90); GLUCOSE 118 mg/dL (74-106); POTASSIUM 3.5 mmol/L (3.5-5.1); SODIUM SERUM 139 mmol/L (136-145); TOTAL BILIRUBIN 0.4 mg/dL (0.0-1.0); TOTAL PROTEIN, SERUM 6.8 g/dL (6.4-8.2); UREA NITROGEN, BLOOD 8 mg/dL (7-18)
[2023-01-18 23:12] LABS: APPEARANCE,URINE CLEAR (CLEAR); BILIRUBIN,URINE NEGATIVE (NEGATIVE); BLOOD, URINE NEGATIVE (NEGATIVE); COLOR,URINE YELLOW (YELLOW); LEUKOCYTE ESTERASE ,URINE NEGATIVE (NEGATIVE); NITRITE, URINE NEGATIVE (NEGATIVE); PROTEIN,URINE NEGATIVE (NEGATIVE); UGLUCOSE NEGATIVE (NEGATIVE); UROBILINOGEN,URINE 0.2 EU/dL (0.2 - 1)
[2023-01-18 23:27] LABS: AMPHETAMINE, URINE NEGATIVE ng/ml (NEG <=1000); BARBITURATE, URINE NEGATIVE ng/ml (NEG <=200); BENZODIAZEPINE, URINE NEGATIVE ng/mL (NEG <=200); CANNABINOID, URINE NEGATIVE ng/mL (NEG <=50); COCAINE, URINE NEGATIVE ng/mL (NEG <=300); OPIATE, URINE NEGATIVE ng/mL (NEG <=2000); PHENCYCLIDINE SCREEN,URINE NEGATIVE ng/mL (NEG <=25)
[2023-01-19] MEDS ORDERED: NACL 0.9% 1,000 ML IV ONE (02:45)
[2023-01-19] MEDS ORDERED: LORazepam 2 MG/ML VIAL IVP ONE (02:45)
[2023-01-19 08:00] VITALS: O2SAT 99
[2023-01-19 10:00] VITALS: BP 132/79; PULSE 82; RESP 16; TEMP 98
== END 2023-01-19 10:00 | disposition home or self-care (01) ==
LOC: MED 20:55
DX: R41.82 Altered mental status, unspecified (principal); T43.595A Adverse effect of other antipsychotics and neuroleptics, initial encounter; F20.9 Schizophrenia, unspecified; I10 Essential (primary) hypertension; Z91.148 Patient's other noncompliance with medication regimen for other reason; Z79.899 Other long term (current) drug therapy; Y92.89 Other specified places as the place of occurrence of the external cause
CPT/HCPCS: 36415; 70450; 71045; 80053; 80305; 81003; 82140; 85025; 96361; 96374; 96375; 99285; G0482; J2060; J2250; J7030

== ENCOUNTER 2023-01-26 23:39 | Emergency (ER) | payer OTHER ==
[~2023-01-26] VITALS: Ht 193 cm; Wt 136.1 kg
[2023-01-26 23:41] VITALS: BP 172/88; PULSE 110; RESP 18; TEMP 97.4; O2SAT 100
[2023-01-26] MEDS ORDERED: LORazepam 2 MG/ML VIAL IM ONE (23:50)
[2023-01-26] MEDS ORDERED: OLANZapine 5 MG ODT SL ONE (23:50)
[2023-01-27] MEDS ORDERED: OLANZapine 10 MG VIAL IM ONE
[2023-01-27 04:24] VITALS: O2SAT 97
[2023-01-27 11:49] VITALS: BP 122/85; PULSE 75; RESP 14; TEMP 98; O2SAT 97
== END 2023-01-27 11:43 | disposition home or self-care (01) ==
LOC: MED 23:39
DX: F20.9 Schizophrenia, unspecified (principal); Z79.899 Other long term (current) drug therapy
CPT/HCPCS: 96372; 99284; J2060; J3490